=== PATIENT | female | born 1980 | race Two or more races ===

== ENCOUNTER 2016-07-17 04:05 | Emergency (ER) | payer OTHER | END 2016-07-17 04:42 | disposition home or self-care (01) | LOC: ED 04:05 | DX: S59.912A Unspecified injury of left forearm, initial encounter (principal); S59.911A Unspecified injury of right forearm, initial encounter; S69.92XA Unspecified injury of left wrist, hand and finger(s), initial encounter; S69.91XA Unspecified injury of right wrist, hand and finger(s), initial encounter; Y04.2XXA Assault by strike against or bumped into by another person, initial encounter; Y93.F9 Activity, other caregiving; Y92.230 Patient room in hospital as the place of occurrence of the external cause; Y99.0 Civilian activity done for income or pay ==